=== PATIENT | male | born 1940 | race Caucasian/White ===

== ENCOUNTER 2016-09-01 10:10 | Observation (INO) | payer BC ==
[2016-08-29 12:56] LABS: BASOPHILS 0.8 %; BASOPHILS ABSOLUTE 0.05 10/3/uL (0.0-0.16); EOSINOPHILS 0.5 %; EOSINOPHILS ABSOLUTE 0.03 10/3/uL (0.0-0.53); HEMATOCRIT 44.1 % (40.0-51.0); HEMOGLOBIN 15.7 g/dL (13.6-17.8); IMMATURE GRANULOCYTES 0.2 %; IMMATURE GRANULOCYTES ABSOLUTE 0.01 10/3/uL (0.0-0.11); LYMPHOCYTES 13.7 %; LYMPHOCYTES ABSOLUTE 0.82 10/3/uL (0.67-4.30); MANUAL DIFF NO %; MEAN CORPUS HGB CONC 35.6 g/dL (32.0-36.0); MEAN CORPUSCULAR HEMOGLOB 31.5 pg (26.0-34.0); MEAN CORPUSCULAR VOLUME 88.6 fL (80-100); MEAN PLATELET VOLUME 10.3 fL (9.2-13.0); MONOCYTES 14.1 %; MONOCYTES ABSOLUTE 0.84 10/3/uL (0.21-1.20); NEUTROPHILS 70.7 %; NEUTROPHILS ABSOLUTE 4.22 10/3/uL (2.02-8.40); PLATELET COUNT 235 10/3/uL (150-400); RBC DISTRIBUTION WIDTH 12.2 % (12.0-16.0); RED CELL COUNT 4.98 10/6/uL (4.7-6.1)
[2016-08-29 13:20] LABS: A/G RATIO 1.3 (0.7-1.9); ALKALINE PHOSPHATASE 59 U/L (45-117); BUN (BLOOD UREA NITROGEN) 8 MG/DL (6-23); CALCIUM, SERUM 8.7 MG/DL (8.5-10.4); CHLORIDE, SERUM 93 MMOL/L (96-112); CO2 (CARBON DIOXIDE) 27 MMOL/L (24-34); GFR AFRICAN AMERICAN 84 ML/MIN (>=60); GFR NON AFRICAN AMERICAN 72 ML/MIN (>=60); GLOBULIN 3.1 G/DL (2.5-4.1); GLUCOSE, SERUM 111 MG/DL (60-99); POTASSIUM, SERUM 4.7 MMOL/L (3.5-5.3); SGOT(AST) 19 U/L (5-40); SGPT(ALT) 21 U/L (5-65); SODIUM, SERUM 129 MMOL/L (135-148); TOTAL BILIRUBIN 1.2 MG/DL (0-1.2); TOTAL PROTEIN 7.1 G/DL (6.0-8.5)
--- NOTE | ~2016-09-01 | OP ---
Record Of Operation [facility] [address] [place]. [address] NAME: ELISSA CONNELL JR : 38 STATUS : DIS Erna PAT#: [id number] AGE: 75 ADM/REG DATE : 09/01/16 MR#: [id number] REPORT SERV DATE: 09/02/16 DICTATED BY: AXEL CHAVES III DATE: 09/02/16 REPORT STATUS : Draft TRANSCRIBED BY: MODKelli DATE: 09/02/16 DATE OF PROCEDURE: 09/01/2016 PREOPERATIVE DIAGNOSIS: Severely symptomatic acalculous cholecystitis. POSTOPERATIVE DIAGNOSIS: Severely symptomatic acalculous cholecystitis. PROCEDURE: Laparoscopic cholecystectomy. SURGEON: Axel Chaves M.D. ANESTHESIA: General with intubation. COMPLICATIONS: None. ESTIMATED BLOOD LOSS: Less than 30 mL. SPECIMENS: Gallbladder. DRAINS: None. LAP AND SPONGE COUNT: Correct x3. BRIEF HISTORY: This 75-year-old male presented with severely symptomatic, disabling acalculous cholecystitis. It was felt that laparoscopic cholecystectomy, possible laparotomy was indicated. The patient is felt to be at marked increased risk for complications due to his use of Effient, which would markedly increase his risk for bleeding. The patient had a recently placed drug-eluting cardiac stent, and for this reason, the Effient could not be stopped perioperatively. The patient also takes Coumadin for atrial fibrillation. Therefore, the patient was strongly counseled regarding the high risk for surgery in this setting in terms of bleeding and cardiac event. Because of the severity of his symptoms, which has become progressively disabling to him and threatening his life, the patient wishes to proceed with surgery which was to be a laparoscopic cholecystectomy, possible laparotomy. This procedure, the risks, benefits, and alternatives, including not limited to the risk for bleeding, infection, common bile duct injury, bile leak, retained common bile stone, enterotomy, or injury to any abdominal structure, the definite possible need for laparotomy, the possible persistence of his symptoms unrelieved by surgery, possibility of postoperative diarrhea or incisional hernia, and unforeseen complications including deep venous thrombosis, pulmonary embolus, myocardial infarction, stroke, pneumonia, and , were fully and completely explained to the patient's family at length on multiple occasions prior to surgery. The fact that this was a major operation with risk for major morbidity and mortality and no guarantee for relief his symptoms were explained to the patient. The expected recovery with both open and laparoscopic procedures was explained. The fact that he would be at marked increased risk for thromboembolic complications while his Coumadin was Record Of Operation [address] [address] NAME: ELISSA CONNELL JR : 38 STATUS : DIS Erna PAT#: [id number] AGE: 75 ADM/REG DATE : 09/01/16 MR#: [id number] REPORT SERV DATE: 09/02/16 DICTATED BY: AXEL CHAVES III DATE: 09/02/16 REPORT STATUS : Draft TRANSCRIBED BY: MODKelli DATE: 09/02/16 held perioperatively and also the marked increased risk for bleeding because of use of this medication, antiplatelet, anticoagulant was explained. The patient and family had questions, which were answered and insisted on proceeding with the surgery. FINDINGS: The patient's gallbladder rae were thickened and inflamed. There were adhesions between the gallbladder and omentum consistent with cholecystitis. The liver and the remainder of the upper abdomen were otherwise unremarkable as far as we could determine through the laparoscope. DESCRIPTION OF PROCEDURE: After being properly identified and after discussing risks of surgery with the patient and his family again in the preoperative area, the patient was taken to the operating room and placed in supine position on the operating room table. General anesthesia was administered and he was intubated without difficulty. The abdomen was prepped and draped sterilely in the usual fashion. After an appropriate "time-out" per JCAHO standards, a small transverse incision was made just below the umbilicus. The skin and fascia incised and these were elevated with towel clips. A Veress needle was placed through the incision into the peritoneal cavity. Correct position of the needle in the peritoneal cavity was confirmed by the hanging drop test. The abdominal cavity was then insufflated to about 13 mmHg of carbon dioxide. Correct position of the air in the peritoneal cavity was confirmed by palpation. The Veress needle was removed and replaced with a 10-mm trocar. The laparoscope was placed through this. The patient was placed in a reverse Trendelenburg position and to his left. A second 10-mm trocar was placed just below the xiphoid process, to the right of the falciform ligament, under direct vision with the laparoscope. Two 5-mm trocars were placed along the right subcostal margin, one in the midaxillary line and other in the midclavicular line. These were also placed under direct vision with the laparoscope. The upper abdomen was inspected. The gallbladder appeared to be chronically diseased. The gallbladder rae were thickened and inflamed, and there were adhesions between the gallbladder and omentum consistent with chronic cholecystitis. The liver and remainder of the upper abdomen were otherwise unremarkable as far as we could determine through the laparoscope. The appropriate instruments were placed through the trocars. Using sharp dissection, the adhesions between the gallbladder and the omentum were carefully divided. The gallbladder was then grasped and the infundibulum of the gallbladder was retracted laterally and inferiorly so as to expose the triangle of Calot. Using sharp dissection, the cystic duct was carefully and meticulously defined proximally and distally. The cystic duct was fairly long. The junction of cystic duct with the common bile duct was appreciated, but not skeletonized. The cystic artery was similarly defined proximally and distally. The fibrous and fatty tissue between these structures was divided so as to clearly identify the critical angle. The lower portion of the gallbladder was dissected away from the liver plate so as to clearly identify the critical view of safety. Again, the cystic duct and cystic artery were individually isolated. The triangle of Calot was clearly defined. Once these structures were clearly defined, the cystic duct was clipped with two clips on the common bile duct side and one on the gallbladder side, all placed as close to the gallbladder as possible, taking care not encroach upon or injure the common bile duct in any way. The cystic duct was then divided between these clips as close to the gallbladder as possible. The cystic duct was then divided between these clips as close to the gallbladder as Record Of Operation [place] [id number] [facility] [place]. [address] NAME: ELISSA CONNELL : 38 STATUS : DIS Erna PAT#: [id number] AGE: 75 ADM/REG DATE : 09/01/16 MR#: [id number] REPORT SERV DATE: 09/02/16 DICTATED BY: AXEL CHAVES III DATE: 09/02/16 REPORT STATUS : Draft TRANSCRIBED BY: MODL DATE: 09/02/16 possible. We elected not to perform a cholangiogram because there was no preoperative or intraoperative evidence for biliary dilatation because the patient's preoperative liver enzymes were normal and because his biliary anatomy was clearly defined. The cystic artery was then similarly clipped and divided as close to the gallbladder as possible. Using the spatula and the cautery, the gallbladder was carefully dissected from the liver bed. Before the gallbladder was completely removed, the gallbladder bed and portal areas were irrigated numerous times with saline. The saline was aspirated dry. This process was repeated several times until hemostasis was meticulously and thoroughly assured in all areas. It was also assured that the clips in portal area were in good position, and there was no extravasation of bile from any accessory bile ducts. Once this was assured, the gallbladder was completely dissected away from the liver and placed in an Endopouch. The liver bed was elevated, irrigated, inspected for meticulous and thorough hemostasis and for absence of any biliary extravasation. Once this was assured, the gallbladder and the Endopouch were brought out through the infraumbilical incision after placing the laparoscope through the subxiphoid trocar. The fascia of the infraumbilical incision was closed with 0 Vicryl suture. The lateral two trocars were removed, and these three lower trocar sites were inspected on the underside for hemostasis with the laparoscope. Once this was assured, the subxiphoid trocar was removed under direct vision with the laparoscope to assure hemostasis in this incision. The air was removed from the peritoneal cavity through the skin incisions. The skin incisions were inspected for hemostasis and then closed with running subcuticular 4-0 Monocryl stitches. They were injected with 0.5% Marcaine. Dressings were applied. Anesthesia was reversed. The patient was taken to the recovery room in stable condition. He tolerated the procedure well. His family was informed results of surgery. The patient will remain in the hospital for postoperative care due to his high risk for bleeding postoperatively and due to his significant risk for cardiac complications related to his anticoagulation therapy. RHJ/MODL Axel Chaves III, M.D. / [id number] CC: Sabino Cortez III, M.D.
--- NOTE | ~2016-09-01 | PREOPHP ---
PreOp History and Physical [place] [address] [facility] [place]. [address] NAME: ELISSA CONNELL JR : 38 STATUS : PRE [place] PAT#: [id number] AGE: 75 ADM/REG DATE : MR#: [id number] REPORT SERV DATE: 09/01/16 DICTATED BY: AXEL CHAVES III DATE: 08/25/16 REPORT STATUS : Draft TRANSCRIBED BY: MODL DATE: 08/25/16 HISTORY OF PRESENT ILLNESS: This 75-year-old male comes to the operating room for laparoscopic cholecystectomy, possible laparotomy, for severely symptomatic acalculous cholecystitis. The patient complains of severe nausea. These symptoms have become progressively worse and disabling to the patient and associated with a marked deterioration in his quality of life. The patient has evidence for acalculous cholecystitis. He comes to the operating room now for laparoscopic cholecystectomy, possible laparotomy. The symptoms had been ongoing for five months and had become progressively worse and extreme. The patient is felt to be extremely high risk for surgery because of coronary artery disease. The patient had a drug-eluting stent placed in April this year and he is on Coumadin and Effient. It has been fully and completely explained to the patient that this stopping these medications which is necessary for the surgery, will involve significant risk for mortality for him. The risk for myocardial infarction is extremely high. Therefore, the patient has been counseled against proceeding with surgery, but because of the severity of disease, he and his family insisted on proceeding, being very well aware of the high risk for mortality in this setting. I have repeatedly discussed this with the patient's family and they are insistent and adamant on proceeding in spite of our warnings about the high risk for perioperative occlusion of his coronary artery stent which could result in fatality. The patient understands again, but insisted on proceeding with surgery. PAST MEDICAL HISTORY: 1. Hypertension. 2. Coronary artery disease. 3. History of myocardial infarction. 4. History of coronary artery bypass graft. 5. History coronary artery disease. 6. Atrial fibrillation. 7. History of transient ischemic attack. 8. COPD. 9. History of pituitary adenoma. PAST SURGICAL HISTORY: Includes: 1. Coronary stent placement x3 with the last placement in April 2016, this is a drug- eluting stent. 2. History of coronary artery bypass graft. 3. History of pacemaker placement. FAMILY HISTORY: Positive for breast cancer and heart disease. SOCIAL HISTORY: The patient has no history of tobacco use. Currently has no history of alcohol use. ALLERGIES: ASPIRIN, MORPHINE, PENICILLIN. MEDICATIONS: Symbicort, Spiriva, Singulair, lisinopril, Pepcid, Effient, Jantoven, Zoloft, isosorbide, Ambien, Crestor, metoprolol, Voltaren, Nitrostat, Lopressor, Coumadin, Monokit, Lipitor. PreOp History and Physical [address] [address] NAME: ELISSA CONNELL JR : 38 STATUS : PRE [place] PAT#: [id number] AGE: 75 ADM/REG DATE : MR#: [id number] REPORT SERV DATE: 09/01/16 DICTATED BY: AXEL CHAVES III DATE: 08/25/16 REPORT STATUS : Draft TRANSCRIBED BY: MARIA D DATE: 08/25/16 REVIEW OF SYSTEMS: Patient complains of back pain, severe nausea and vomiting. His 14-point review of systems is otherwise unremarkable. PHYSICAL EXAMINATION: GENERAL: This is a chronically ill-appearing, elderly male, in no acute distress. He is alert and oriented x3. VITAL SIGNS: Blood pressure 140/80, heart rate 70, temperature 97.1. HEENT: Unremarkable. NEUROLOGIC: Cranial sutures II through XII are normal. LUNGS: Clear. CARDIAC: Normal. ABDOMEN: Soft. Nontender. No masses. LABORATORY DATA: Gallbladder ultrasound shows a gallbladder polyp. HIDA scan shows an abnormal ejection fraction of 14%. ASSESSMENT: 1. A 75-year-old male with severely symptomatic acalculous cholecystitis. 2. Coronary artery disease. 3. History of coronary artery bypass graft. 4. History of coronary artery stent placement. 5. Hypertension. 6. Chronic obstructive pulmonary disease. 7. Transient ischemic attack in the past. 8. Atrial fibrillation. 9. History of pacemaker placement. PLAN: The patient comes to the operating room now for laparoscopic cholecystectomy, possible laparotomy. This procedure, the risks, benefits, and alternatives, including but not limited to the risk for bleeding, infection, common bile duct injury, bile leak, retained common bile stone, enterotomy, or injury to any abdominal structure, the definite possible need for laparotomy, possible persistence of his symptoms unrelieved by surgery, the possibility of postoperative diarrhea or incisional hernia and unforeseen complications including deep venous thrombosis, pulmonary embolus, myocardial infarction, stroke, pneumonia, and , have been fully and completely explained to the patient's family at length repeatedly prior to surgery. The fact that this is a major operation with high risk for morbidity and mortality in this setting has been explained. The possible persistence of his symptoms totally unrelieved by surgery has been explained. The fact that he is at marked increased risk for mortality because his anticoagulation on a Coumadin will need to be stopped perioperatively has been fully explained. The fact that he is at high risk for perioperative myocardial infarction and in this situation has been explained. The fact that he has increased risk for bleeding because of the use of these medications, bleeding which could be life-threatening has been explained. The fact that he is at increased risk for laparotomy because of the use of these medications which could result in significant bleeding necessitating laparotomy has been explained. The option of PreOp History and Physical [address] [address] NAME: KOELISSA JR : 38 STATUS : PRE [place] PAT#: [id number] AGE: 75 ADM/REG DATE : MR#: [id number] REPORT SERV DATE: 09/01/16 DICTATED BY: AXEL CHAVES III DATE: 08/25/16 REPORT STATUS : Draft TRANSCRIBED BY: MARIA D DATE: 08/25/16 nonoperative management has been offered and fully recommended, but declined. The patient and his family are well aware of the risk of a high risk for mortality in this setting and are insistent on proceeding with surgery as planned. YOLETTE/MARIA D Axel Chaves III, M.D. / [id number]
[~2016-09-01 10:10] MED LIST: ACET500CAP PO; AMB5 PO; COREG3 PO; COREG6 PO; CRESTOR10 PO; CRESTOR5 MG PO; EFFIENT10 PO; EFFIENT5 MG PO; FLUCON1 PO; FOLBIC PO; IMDUR30 PO; ISORDTAB5 PO; JANTOVEN1 MG PO; LIPITOR40 PO; LIQUID TEARS OPH; LOP25 PO; MONOKET PO; NITROSTAT0.4 MG SL; PEP20 PO; PEPCID40 MG PO; PRIN2.5 PO; SAW PALMETT2 PO; SINGULAIR1 PO; SPIRIVA INH; SYMBICORT 160/41 INH INH; TUMS E-X750 M2 PO; TUMSROLL PO; VOLTAREN1 % TOP; ZANTAC 150 PO
[2016-09-01 10:35] LABS: INTERNATIONAL NORMAL RATI 1.2 UNITS (-); PROTIME (NOT ORD) 14.9 SEC (12.0-14.5)
[2016-09-01 10:40] LABS: BUN (BLOOD UREA NITROGEN) 9 MG/DL (6-23); CALCIUM, SERUM 8.8 MG/DL (8.5-10.4); CHLORIDE, SERUM 94 MMOL/L (96-112); CO2 (CARBON DIOXIDE) 27 MMOL/L (24-34); CREATININE 0.97 MG/DL (0.70-1.30); GFR AFRICAN AMERICAN 87 ML/MIN (>=60); GFR NON AFRICAN AMERICAN 75 ML/MIN (>=60); GLUCOSE, SERUM 100 MG/DL (60-99); POTASSIUM, SERUM 4.4 MMOL/L (3.5-5.3); SODIUM, SERUM 131 MMOL/L (135-148)
[2016-09-01 17:44] LABS: HEMATOCRIT 41.2 % (40.0-51.0); HEMOGLOBIN 14.5 g/dL (13.6-17.8)
[2016-09-01 19:24] LABS: HEMATOCRIT 40.2 % (40.0-51.0); HEMOGLOBIN 14.4 g/dL (13.6-17.8)
[2016-09-01 22:06] LABS: HEMATOCRIT 42.2 % (40.0-51.0); HEMOGLOBIN 14.7 g/dL (13.6-17.8)
[2016-09-02 06:39] LABS: BASOPHILS 0.1 %; BASOPHILS ABSOLUTE 0.01 10/3/uL (0.0-0.16); EOSINOPHILS 0 %; HEMATOCRIT 42.1 % (40.0-51.0); IMMATURE GRANULOCYTES 0.3 %; IMMATURE GRANULOCYTES ABSOLUTE 0.03 10/3/uL (0.0-0.11); LYMPHOCYTES 5.4 %; LYMPHOCYTES ABSOLUTE 0.61 10/3/uL (0.67-4.30); MEAN CORPUS HGB CONC 35.6 g/dL (32.0-36.0); MEAN CORPUSCULAR HEMOGLOB 31.5 pg (26.0-34.0); MEAN CORPUSCULAR VOLUME 88.4 fL (80-100); MEAN PLATELET VOLUME 10.8 fL (9.2-13.0); MONOCYTES 8.5 %; MONOCYTES ABSOLUTE 0.95 10/3/uL (0.21-1.20); NEUTROPHILS 85.7 %; NEUTROPHILS ABSOLUTE 9.63 10/3/uL (2.02-8.40); PLATELET COUNT 276 10/3/uL (150-400); RBC DISTRIBUTION WIDTH 12.2 % (12.0-16.0); RED CELL COUNT 4.76 10/6/uL (4.7-6.1)
[2016-09-02 06:40] LABS: MANUAL DIFF NO %; WHITE BLOOD CELLS 11.2 10/3/uL (4.5-10.5)
[2016-09-02 06:42] LABS: INTERNATIONAL NORMAL RATI 1.2 UNITS (-); PROTIME (NOT ORD) 14.8 SEC (12.0-14.5)
[2016-09-02 06:44] LABS: ALBUMIN 3.6 G/DL (3.5-5.0); ALKALINE PHOSPHATASE 59 U/L (45-117); BUN (BLOOD UREA NITROGEN) 9 MG/DL (6-23); CALCIUM, SERUM 8.5 MG/DL (8.5-10.4); CHLORIDE, SERUM 90 MMOL/L (96-112); CO2 (CARBON DIOXIDE) 27 MMOL/L (24-34); CREATININE 1.09 MG/DL (0.70-1.30); GFR AFRICAN AMERICAN 75 ML/MIN (>=60); GFR NON AFRICAN AMERICAN 65 ML/MIN (>=60); GLOBULIN 3.6 G/DL (2.5-4.1); POTASSIUM, SERUM 4.3 MMOL/L (3.5-5.3); SGOT(AST) 38 U/L (5-40); SGPT(ALT) 34 U/L (5-65); SODIUM, SERUM 127 MMOL/L (135-148); TOTAL PROTEIN 7.2 G/DL (6.0-8.5)
[2016-09-02 06:45] LABS: GLUCOSE, SERUM 129 MG/DL (60-99)
[2016-09-02] MEDS ORDERED: PERCOCET1 TA2 PO (09:25)
[2016-09-02 12:01] LABS: HEMATOCRIT 39.8 % (40.0-51.0); HEMOGLOBIN 14.2 g/dL (13.6-17.8)
== END 2016-09-02 13:34 | disposition home or self-care (01) ==
LOC: SDC 10:10 → 5SO 14:43
PROVIDERS: Surgery
PROC: 0FT44ZZ Resection of Gallbladder, Percutaneous Endoscopic Approach (ICD-10-PCS; principal; 2016-09-01 12:00)
DX: K82.4 Cholesterolosis of gallbladder (principal); I48.91 Unspecified atrial fibrillation; I25.10 Atherosclerotic heart disease of native coronary artery without angina pectoris; I25.2 Old myocardial infarction; E78.00 Pure hypercholesterolemia, unspecified; H91.91 Unspecified hearing loss, right ear; M19.90 Unspecified osteoarthritis, unspecified site; K21.9 Gastro-esophageal reflux disease without esophagitis; K44.9 Diaphragmatic hernia without obstruction or gangrene; N40.0 Benign prostatic hyperplasia without lower urinary tract symptoms; D35.2 Benign neoplasm of pituitary gland; F41.9 Anxiety disorder, unspecified; Z95.5 Presence of coronary angioplasty implant and graft; J44.9 Chronic obstructive pulmonary disease, unspecified; J45.909 Unspecified asthma, uncomplicated; Z95.0 Presence of cardiac pacemaker; Z95.1 Presence of aortocoronary bypass graft; Z88.5 Allergy status to narcotic agent; Z88.0 Allergy status to penicillin; Z88.6 Allergy status to analgesic agent; Z79.01 Long term (current) use of anticoagulants; Z79.899 Other long term (current) drug therapy; Z87.891 Personal history of nicotine dependence; Z85.828 Personal history of other malignant neoplasm of skin; Z98.890 Other specified postprocedural states
CPT/HCPCS: 71020; 80048; 80053; 85014; 85018; 85025; 85610; 88304; 93005; 94640; 96374; 96376; A9270-GY; G0378; J0690; J1170; J2370; J2405; J2710